=== PATIENT | female | born 1995 | race Native Hawaiian/Other Pacific Islander ===

== ENCOUNTER 2018-10-13 11:10 | Outpatient (CLI) | payer OTHER | END 2018-10-13 22:39 | disposition home or self-care (01) | LOC: RAD 11:10 | DX: J18.9 Pneumonia, unspecified organism (principal) ==

== ENCOUNTER 2021-02-28 12:27 | Outpatient (CLI) | payer OTHER | END 2021-02-28 19:22 | disposition home or self-care (01) | LOC: US 12:27 | PROVIDERS: ATTEND Nurse Practitioner Family | DX: R22.2 Localized swelling, mass and lump, trunk (principal) ==